=== PATIENT | male | born 1960 | race African-American/Black ===

== ENCOUNTER 2020-10-19 09:21 | Emergency (ER) | payer MEDICAID ==
[~2020-10-19] VITALS: Ht 175.3 cm; Wt 86.2 kg
--- NOTE | 2020-10-19 09:28 | NUR ---
[facility] SID[facility] CHEST PAIN R/T NECK AND LUE THAT STARTED LAST NIGHT WHILE WATCHING TV STATES INTERMITTENT. 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 BG 23O. PT IS AAOX3 GOWNED AND PLACED ON MONITOR. AWAITING MD ROTH.
--- NOTE | 2020-10-19 09:37 | NUR ---
DR CAIN AT BEDSIDE FOR EVAL.
--- NOTE | 2020-10-19 09:49 | NUR ---
RADIOLOGY AT BEDSIDE FOR CHEST XRAY.
[2020-10-19 09:50] LABS: BASOPHILS % (AUTO) 0.6 % (0.0-2.0); EOSINOPHILS % (AUTO) 3.7 % (0.0-6.0); HEMATOCRIT 44 % (39-51); LYMPHOCYTES # (AUTO) 1.7 /CMM (0.8-4.8); LYMPHOCYTES % (AUTO) 22.7 % (20.0-44.0); MEAN CORPUSCULAR HGB CONC 32 g/dl (31.0-36.0); MEAN CORPUSCULAR VOLUME 76 fL (80-96); MONOCYTES # (AUTO) 0.6 /CMM (0.1-1.30); MONOCYTES % (AUTO) 8.4 % (2.0-12.0); NEUTROPHILS # (AUTO) 4.7 /CMM (1.8-8.9); NEUTROPHILS % (AUTO) 64.6 % (43.0-81.0); PLATELET COUNT (AUTO) 274 /CMM (150-450); RED BLOOD CELL COUNT(AUTO) 5.72 MIL/uL (4.5-6.0); WHITE BLOOD COUNT (AUTO) 7.3 K/uL (4.3-11.0)
[2020-10-19 09:58] LABS: CARBON DIOXIDE 25 mmol/L (21-32); CHLORIDE 102 mmol/L (98-107)
[2020-10-19] MEDS ORDERED: KETOROLAC TROMETHAMINE INJ 30 MG/ML VIAL IV ONE (10:00)
[2020-10-19 10:05] LABS: CALCIUM, SERUM 8.1 mg/dL (8.5-10.1); GLUCOSE 227 mg/dL (74-106); POTASSIUM 4.3 mmol/L (3.5-5.1); SODIUM SERUM 136 mmol/L (136-145); UREA NITROGEN, BLOOD 11 mg/dL (7-18)
[2020-10-19] MEDS ORDERED: KETOROLAC TROMETHAMINE INJ 30 MG/ML VIAL ONE (10:13)
[2020-10-19] MEDS ORDERED: ACET-907 PO (11:08)
--- NOTE | 2020-10-19 11:16 | NUR ---
Patient discharged to home in stable condition. Written and verbal after care instructions given. Patient verbalizes understanding of instruction.IV removed. Catheter intact and site benign. Pressure and 4x4 applied to site. No bleeding noted.
[2020-10-19 11:18] VITALS: BP 156/87
== END 2020-10-19 11:18 | disposition home or self-care (01) ==
LOC: ER 09:23
DX: R07.89 Other chest pain (principal); I11.0 Hypertensive heart disease with heart failure; I50.9 Heart failure, unspecified; E11.9 Type 2 diabetes mellitus without complications; F17.200 Nicotine dependence, unspecified, uncomplicated; Z79.899 Other long term (current) drug therapy
CPT/HCPCS: 36415; 71045; 80048; 84484; 85025; 93005; 96374; 99285; J1885

== ENCOUNTER 2021-12-05 10:49 | Emergency (ER) | payer MEDICAID ==
[~2021-12-05] VITALS: Ht 175.3 cm; Wt 89.8 kg
[~2021-12-05 10:49] MED LIST: ACET-907 PO
--- NOTE | 2021-12-05 10:59 | NUR ---
TO ER BED 11 FOR EVAL AND TREATMENT OF RIGHT ANKLE AND RIGHT HAND,AWAITING MD ROTH
--- NOTE | 2021-12-05 11:20 | NUR ---
X RAY AT BEDSIDE
--- NOTE | 2021-12-05 11:24 | NUR ---
IV ESTABLISHED L AC 18G. LABS AND CULTURES COLLECTED AND SENT.
--- NOTE | 2021-12-05 11:25 | NUR ---
KELLY COLLECTED AND SENT
[2021-12-05 11:53] LABS: BASOPHILS # (AUTO) 0.1 K/uL (0.0-0.2); BASOPHILS % (AUTO) 0.4 % (0.0-2.0); EOSINOPHILS % (AUTO) 1.1 % (0.0-6.0); HEMATOCRIT 39 % (39-51); HEMOGLOBIN 12.5 g/dL (13.5-17.5); LYMPHOCYTES # (AUTO) 1.2 K/uL (0.8-4.8); LYMPHOCYTES % (AUTO) 9.1 % (20.0-44.0); MEAN CORPUSCULAR HGB CONC 32 g/dl (31.0-36.0); MEAN CORPUSCULAR VOLUME 70 fL (80-96); MONOCYTES # (AUTO) 0.9 K/uL (0.1-1.30); NEUTROPHILS # (AUTO) 10.8 K/uL (1.8-8.9); NEUTROPHILS % (AUTO) 82.4 % (43.0-81.0); PLATELET COUNT (AUTO) 313 K/uL (150-450); RED BLOOD CELL COUNT(AUTO) 5.59 MIL/uL (4.5-6.0); WHITE BLOOD COUNT (AUTO) 13.1 K/uL (4.3-11.0)
[2021-12-05 12:10] LABS: CALCIUM, SERUM 8.8 mg/dL (8.5-10.1)
--- NOTE | 2021-12-05 12:32 | NUR ---
SPOKE TO SISTER EUGENE [phone]
--- NOTE | 2021-12-05 12:38 | NUR ---
URINE COLLECTED AND SENT
[2021-12-05] MEDS ORDERED: ONDANSETRON HCL/PF 4 MG/2 ML VIAL ONE (12:57)
[2021-12-05] MEDS ORDERED: MORPHINE SULFATE INJ 4 MG/ML DISP.SYRIN ONE (12:58)
[2021-12-05] MEDS ORDERED: ONDANSETRON HCL/PF 4 MG/2 ML VIAL IV ONE (13:00)
[2021-12-05] MEDS ORDERED: MORPHINE SULFATE INJ 2 MG/ML DISP.SYRIN IV ONE (13:00)
[2021-12-05] MEDS ORDERED: IV NS 0.9% 1,000 ML BAG ONE (13:00)
[2021-12-05] MEDS ORDERED: IV NS 0.9% 50 ML BAG IV ONE (13:00)
[2021-12-05 13:03] LABS: BILIRUBIN,URINE NEGATIVE (NEGATIVE); COLOR,URINE YELLOW (YELLOW); LEUKOCYTE ESTERASE ,URINE NEGATIVE (NEGATIVE); NITRITE, URINE POSITIVE (NEGATIVE); PROTEIN,URINE 100 mg/dl (NEGATIVE); UGLUCOSE >=1000 mg/dL (NEGATIVE)
[2021-12-05 13:14] LABS: BACTERIA,URINE Moderate /HPF (None Seen); SQUAMOUS EPITHELIAL CELL,UR Rare /HPF (None Seen)
[2021-12-05] MEDS ORDERED: IBUP-1955 PO (14:47)
[2021-12-05] MEDS ORDERED: SULF1TAB48 PO (14:47)
[2021-12-05] MEDS ORDERED: CEPH500C2 PO (14:47)
--- NOTE | 2021-12-05 15:05 | NUR ---
CALLED [facility] AND SET UP BLS TRANSPORT ETA [phone]
--- NOTE | 2021-12-05 15:53 | NUR ---
IV removed. Catheter intact and site benign. Pressure and 4x4 applied to site. No bleeding noted. Patient discharged to home in stable condition. Written and verbal after care instructions given. Patient verbalizes understanding of instruction.
[2021-12-05 15:54] VITALS: BP 124/71
== END 2021-12-05 15:55 | disposition home or self-care (01) ==
LOC: ER 10:52
DX: S93.401A Sprain of unspecified ligament of right ankle, initial encounter (principal); W18.40XA Slipping, tripping and stumbling without falling, unspecified, initial encounter; Y92.89 Other specified places as the place of occurrence of the external cause; L03.113 Cellulitis of right upper limb; N39.0 Urinary tract infection, site not specified; J98.11 Atelectasis; Z20.822 Contact with and (suspected) exposure to COVID-19; I45.10 Unspecified right bundle-branch block; D50.9 Iron deficiency anemia, unspecified; E11.65 Type 2 diabetes mellitus with hyperglycemia; I10 Essential (primary) hypertension; I11.0 Hypertensive heart disease with heart failure; I50.9 Heart failure, unspecified; F17.200 Nicotine dependence, unspecified, uncomplicated
CPT/HCPCS: 36415; 71045; 73130; 73610; 80048; 81001; 85025; 87040 ×2; 87077; 87086; 87426; 93005; 96361; 96374; 96375; 99285; C9803; J2270; J2405; J7030

== ENCOUNTER 2022-02-04 00:35 | Emergency (ER) | payer MEDICAID ==
[~2022-02-04] VITALS: Ht 175.3 cm; Wt 81.6 kg
[~2022-02-04 00:35] MED LIST changes: +CEPH500C2 PO; +IBUP-1955 PO; +SULF1TAB48 PO
[2022-02-04 00:59] VITALS: BP 127/76
[2022-02-04] MEDS ORDERED: CLOT15CR27 TP (01:12)
== END 2022-02-04 01:24 | disposition home or self-care (01) ==
LOC: ER 00:40
DX: M79.672 Pain in left foot (principal); M79.671 Pain in right foot; I11.0 Hypertensive heart disease with heart failure; I50.9 Heart failure, unspecified; E11.9 Type 2 diabetes mellitus without complications; F17.200 Nicotine dependence, unspecified, uncomplicated; Z59.00 Homelessness unspecified; Z79.899 Other long term (current) drug therapy

== ENCOUNTER 2022-02-14 01:27 | Emergency (ER) | payer MEDICAID ==
[~2022-02-14] VITALS: Ht 167.6 cm; Wt 70.3 kg
[~2022-02-14 01:27] MED LIST changes: +CLOT15CR27 TP
[2022-02-14 01:33] VITALS: BP 146/80
[2022-02-14] MEDS ORDERED: PERM60CR4 TP (01:47)
== END 2022-02-14 02:01 | disposition home or self-care (01) ==
LOC: ER 01:29
DX: S90.861A Insect bite (nonvenomous), right foot, initial encounter (principal); S90.862A Insect bite (nonvenomous), left foot, initial encounter; I11.0 Hypertensive heart disease with heart failure; I50.9 Heart failure, unspecified; E11.9 Type 2 diabetes mellitus without complications; Z59.00 Homelessness unspecified; Z79.899 Other long term (current) drug therapy; W57.XXXA Bitten or stung by nonvenomous insect and other nonvenomous arthropods, initial encounter; Y93.89 Activity, other specified; Y92.89 Other specified places as the place of occurrence of the external cause; Y99.8 Other external cause status

== ENCOUNTER 2024-08-15 12:36 | Emergency (ER) | payer MEDICAID ==
[~2024-08-15] VITALS: Ht 172.7 cm; Wt 72.6 kg
[~2024-08-15 12:36] MED LIST changes: +PERM60CR4 TP
[2024-08-15] MEDS: methylPREDNISolone SOD SUCC 125 MG/2ML VIAL IV ONE (13:10)
[2024-08-15] MEDS ORDERED: methylPREDNISolone SOD SUCC 125 MG/2ML VIAL ONE (13:11)
[2024-08-15] MEDS ORDERED: Magnesium 1GM/D5W 100ML PREMIX 200 ML IV ONE (13:12)
[2024-08-15] MEDS: Magnesium 1GM/D5W 100ML PREMIX 200 ML IV ONE (13:15)
[2024-08-15] MEDS ORDERED: IPRATROPIUM NEB FS 0.5 MG/2.5 ML AMPUL.NEB ONE (13:21)
[2024-08-15] MEDS ORDERED: ALBUTEROL FS 2.5 MG/3 ML VIAL.NEB ONE (13:21)
[2024-08-15 13:26] VITALS: O2SAT 98
[2024-08-15] MEDS: IPRATROPIUM NEB FS 0.5 MG/2.5 ML AMPUL.NEB NEB ONE (13:26)
[2024-08-15] MEDS: ALBUTEROL FS 2.5 MG/3 ML VIAL.NEB NEB ONE (13:26)
[2024-08-15 13:44] LABS: BASOPHILS % (AUTO) 0.5 % (0.0-2.0); EOSINOPHILS # (AUTO) 0.1 K/uL (0.0-0.7); EOSINOPHILS % (AUTO) 1.6 % (0.0-6.0); HEMATOCRIT 33 % (39-51); HEMOGLOBIN 10.6 g/dL (13.5-17.5); LYMPHOCYTES # (AUTO) 1.3 K/uL (0.8-4.8); LYMPHOCYTES % (AUTO) 20.6 % (20.0-44.0); MEAN CORPUSCULAR HEMOGLOBIN 20 PG (26.0-33.0); MEAN CORPUSCULAR HGB CONC 32 g/dl (31.0-36.0); MEAN CORPUSCULAR VOLUME 63 fL (80-96); MONOCYTES # (AUTO) 0.6 K/uL (0.1-1.30); MONOCYTES % (AUTO) 9.4 % (2.0-12.0); NEUTROPHILS # (AUTO) 4.3 K/uL (1.8-8.9); NEUTROPHILS % (AUTO) 67.9 % (43.0-81.0); PLATELET COUNT (AUTO) 396 K/uL (150-450); RED BLOOD CELL COUNT(AUTO) 5.29 MIL/uL (4.5-6.0); RED CELL DISTRIBUTION WIDTH 22.2 % (11.5-15.0); WHITE BLOOD COUNT (AUTO) 6.3 K/uL (4.3-11.0)
[2024-08-15 13:51] VITALS: O2SAT 100
[2024-08-15 13:57] LABS: CALCIUM, SERUM 8.8 mg/dL (8.5-10.1); CARBON DIOXIDE 25 mmol/L (21-32); CHLORIDE 102 mmol/L (98-107); CREATININE 1.2 mg/dL (0.6-1.3); GLUCOSE 251 mg/dL (74-106); POTASSIUM 4.7 mmol/L (3.5-5.1); SODIUM SERUM 135 mmol/L (136-145); UREA NITROGEN, BLOOD 19 mg/dL (7-18)
[2024-08-15] MEDS ORDERED: LEVO750T46 PO (14:13)
[2024-08-15] MEDS ORDERED: ALBU18HF2 INH (14:13)
[2024-08-15] MEDS ORDERED: PRED50TA PO (14:13)
[2024-08-15 15:08] LABS: EOSINOPHILS % (MANUAL) 1 % (0-4); HYPOCHROMASIA 1+; LYMPHOCYTES % (MANUAL) 24 % (16-48); MONOCYTES % (MANUAL) 12 % (0-11.0); NEUTROPHILS % (MANUAL) 63 (42-76); PLATELET ESTIMATE ADEQUATE
[2024-08-15 15:09] LABS: ANISOCYTOSIS 2+
[2024-08-15 17:02] VITALS: BP 149/98; TEMP 98.7; O2SAT 95
== END 2024-08-15 17:03 | disposition home or self-care (01) ==
LOC: ER 12:38
DX: J44.0 Chronic obstructive pulmonary disease with (acute) lower respiratory infection (principal); J44.1 Chronic obstructive pulmonary disease with (acute) exacerbation; J18.9 Pneumonia, unspecified organism; E11.9 Type 2 diabetes mellitus without complications; F17.200 Nicotine dependence, unspecified, uncomplicated; I11.0 Hypertensive heart disease with heart failure; R00.0 Tachycardia, unspecified; I50.9 Heart failure, unspecified; I70.0 Atherosclerosis of aorta; Z59.01 Sheltered homelessness; Z79.52 Long term (current) use of systemic steroids
CPT/HCPCS: 99285; 96365; 71045; 96366; 96375; 93005; 85025; 80048; 36415; 84484; 94640; 85007; J2919; J3475